=== PATIENT | male | born 1950 | race Caucasian/White ===

== ENCOUNTER 2018-12-16 08:21 | Outpatient (CLI) | payer MEDICARE | END 2018-12-16 08:22 | disposition home or self-care (01) | LOC: CTENTCT 08:21 | PROVIDERS: ATTEND Specialist | DX: H66.91 Otitis media, unspecified, right ear (principal) | CPT/HCPCS: 70486 ==

== ENCOUNTER 2021-09-17 09:04 | Outpatient (CLI) | payer MEDICARE | END 2021-09-17 09:05 | disposition home or self-care (01) | LOC: CTENTCT 09:04 | PROVIDERS: ATTEND Specialist | DX: H92.11 Otorrhea, right ear (principal) | CPT/HCPCS: 70480 ==